=== PATIENT | male | born 1995 | race Caucasian/White ===

== ENCOUNTER 2019-03-08 18:39 | Emergency (ER) | payer BC ==
[2019-03-08] MEDS ORDERED: Adacel (T-DAP) 0.5 ML SYRINGE ONE (19:12)
[2019-03-08] MEDS ORDERED: Ibuprofen 800 MG TAB ONE (19:12)
--- NOTE | 2019-03-08 19:34 | RAD ---
RIGHT THUMB THREE VIEWS: 03/08/19 HISTORY: Crush injury, right thumb pain. FINDINGS/IMPRESSION: No fracture or dislocation identified. POS: [facility]
--- NOTE | 2019-03-08 19:34 | RAD ---
LEFT THUMB THREE VIEWS: 03/08/19 HISTORY: Crush injury, left thumb pain. FINDINGS/IMPRESSION: No fracture or dislocation is identified. POS: [facility]
== END 2019-03-08 19:48 | disposition home or self-care (01) ==
LOC: ERS 18:39
DX: S67.01XA Crushing injury of right thumb, initial encounter (principal); S61.012A Laceration without foreign body of left thumb without damage to nail, initial encounter; Z87.891 Personal history of nicotine dependence; F41.9 Anxiety disorder, unspecified; F32.9 Major depressive disorder, single episode, unspecified; Z79.899 Other long term (current) drug therapy; W23.0XXA Caught, crushed, jammed, or pinched between moving objects, initial encounter
CPT/HCPCS: 90471; 90715